=== PATIENT | male | born 1940 | race Caucasian/White ===

== ENCOUNTER 2021-02-08 13:17 | Observation (INO) ==
[2021-02-08] MEDS ORDERED: Isovue-370 500 ML BOTTLE IVP ONE (13:23)
[2021-02-08 13:29] LABS: Hemoglobin 15.1 g/dL (12.9-16.9)
[2021-02-08 13:31] LABS: Hematocrit 46.8 % (37.5-50.1); Immature Platelets 6.7 % (1.1-6.1); Mean Corpuscular HGB Conc 32.3 g/dL (31.6-35.5); Mean Corpuscular Hemoglobin 31.3 pg (28.0-33.3); Mean Corpuscular Volume 96.9 fL (83.0-100.0); Mean Platelet Volume 11.6 fL (9.4-12.4); Red Blood Count 4.83 M/mcL (4.19-5.50); Red Cell Distribution Width 14.3 % (11.5-14.5); White Blood Count 5.5 K/mcL (4.3-11.1)
[2021-02-08 13:37] LABS: INR 1.1; Prothrombin Time 11.8 Seconds (9.4-12.1)
[2021-02-08 13:39] LABS: Activated Partial Thrombo Time 30.2 Seconds (26.0-36.0)
[2021-02-08 14:39] LABS: BUN/Creatinine Ratio 18 (6-26); Blood Urea Nitrogen 14 mg/dL (8-23); Calcium 9.3 mg/dL (8.6-10.3); Carbon Dioxide 26 mEq/L (23-29); Chloride 107 mEq/L (98-107); Creatine Kinase 71 Units/L (30-223); Ethanol < 10 mg/dL (Less than 10); Glucose 134 mg/dL (70-105); Osmolality,Calculated 294 (280-300); Sodium 141 mEq/L (136-145); Troponin I < 0.03 ng/mL (< 0.04); eGFR For African Americans > 60 (> 60); eGFR For Non-African Americans > 60 (> 60)
[2021-02-08 15:12] LABS: Bilirubin,Urine Negative (Negative); Blood,Urine Negative (Negative); Clarity,Urine Clear (Clear); Color,Urine Light-Yellow (Yellow); Glucose,Urine (UA) Normal (Normal); Ketones,Urine Negative (Negative); Leukocyte Esterase,Urine Negative (Negative); Nitrite,Urine Negative (Negative); PH,Urine 7.5 pH Units (5.0-8.0); Protein,Urine Trace mg/dL (Neg-Trace); Specific Gravity,Urine > 1.030 (1.010-1.025); Urobilinogen,Urine Normal (Normal)
[2021-02-08] MEDS ORDERED: Perflutren Lipid Microsphere 1.3 ML in 0.9 % Sodium Chloride 8.7 ML IVP PRN (15:38)
[2021-02-08] MEDS: Aspirin 81 MG TAB.CHEW PO SCH (17:46)
[2021-02-08] MEDS ORDERED: *HR* OxyCODONE/APAP 5/325 TABLET PO SCH (18:00)
[2021-02-08] MEDS: *HR* OxyCODONE/APAP 5/325 TABLET PO SCH (20:18)
[2021-02-09] MEDS ORDERED: *HR* OxyCODONE/APAP 10/325 TABLET PO ONE (02:17)
[2021-02-09] MEDS: *HR* OxyCODONE/APAP 5/325 TABLET PO SCH ×2 (02:51→08:33)
[2021-02-09] MEDS: *HR* Enoxaparin 40 MG/0.4 ML SYRINGE SQ SCH (05:55)
[2021-02-09 06:15] LABS: INR 1.1; Prothrombin Time 12.1 Seconds (9.4-12.1)
[2021-02-09 06:16] LABS: BUN/Creatinine Ratio 18 (6-26); Blood Urea Nitrogen 13 mg/dL (8-23); Calcium 8.7 mg/dL (8.6-10.3); Carbon Dioxide 25 mEq/L (23-29); Chloride 108 mEq/L (98-107); Cholesterol 118 mg/dL (< 200); Glucose 96 mg/dL (70-105); HDL Cholesterol 60 mg/dL (40-59); LDL Cholesterol,Calculated 40 mg/dL (< 100); Osmolality,Calculated 288 (280-300); Potassium 3.8 mEq/L (3.5-5.1); Sodium 139 mEq/L (136-145); Triglycerides 91 mg/dL (< 150); eGFR For African Americans > 60 (> 60); eGFR For Non-African Americans > 60 (> 60)
[2021-02-09] MEDS: Aspirin 81 MG TAB.CHEW PO SCH (08:30)
[2021-02-09] MEDS: *HR* OxyCODONE/APAP 10/325 TABLET PO SCH ×3 (11:03→23:32)
[2021-02-10] MEDS: *HR* Enoxaparin 40 MG/0.4 ML SYRINGE SQ SCH (06:04)
[2021-02-10 08:24] VITALS: BP 138/81; PULSE 63; TEMP 97.8; O2SAT 93
[2021-02-10] MEDS: Aspirin 81 MG TAB.CHEW PO SCH (08:36)
[2021-02-10] MEDS: *HR* OxyCODONE/APAP 10/325 TABLET PO SCH (08:36)
[2021-02-11 10:36] LABS: Estimated Average Glucose 131 mg/dl; Hemoglobin A1C 6.2 %
== END 2021-02-10 15:30 | disposition home health service (06) ==
LOC: EMEROOARM 13:17 → 3BNU 13:17 → SUATTDRO 15:52 → 3BNU 16:38
PROVIDERS: ADMIT Family Medicine; ATTEND Student in an Organized Health Care Education/Training Program